=== PATIENT | female | born 1995 | race Two or more races ===

== ENCOUNTER 2016-10-02 14:28 | Emergency (ER) | payer OTHER ==
[2016-10-02] MEDS ORDERED: ORPHENADRINE 30 MG/ML 2 ML VIAL IM STA (15:45)
[2016-10-02] MEDS ORDERED: KETOROLAC 60 MG/2 ML VIAL IM STA (15:45)
--- NOTE | 2016-10-02 15:46 | ED ---
Upper Extremity HPI - General Chief Complaint: Extremity Injury, Upper Stated Complaint: Neck and shoulder pain Time Seen by Provider: 10/02/16 15:24 Source: patient, RN notes reviewed, old records reviewed Mode of arrival: ambulatory Limitations: no limitations - Related Data Previous Rx's Medication Instructions Recorded Cyclobenzaprine [Flexeril] 10 mg PO TID #15 tab 10/02/16 Ibuprofen [Motrin] 600 mg PO Q8HR PRN #20 tab 10/02/16 Allergies Allergy/AdvReac Type Severity Reaction Status Date / Time No Known Allergies Allergy Verified 10/02/16 15:55 Review of Systems ROS Statement: Those systems with pertinent positive or pertinent negative responses have been documented in the HPI. ROS Other: All systems not noted in ROS Statement are negative. Past Medical History Past Medical History: No Reported History History of Any Multi-Drug Resistant Organisms: None Reported Past Surgical History: No Surgical Hx Reported Past Psychological History: No Psychological Hx Reported Smoking Status: Never smoker Past Alcohol Use History: None Reported Past Drug Use History: None Reported General Exam Limitations: no limitations Course Vital Signs 10/02/16 14:46 Temperature 98.8 F Pulse Rate 82 Respiratory 17 Rate Blood Pressure 124/66 O2 Sat by Pulse 100 Oximetry Disposition Clinical Impression: Neck muscle spasm Disposition: HOME SELF-CARE Condition: Good Instructions: Muscle Spasm (ED) Additional Instructions: patient is to apply heat and ice to the upper back. Take pain medication instructed as prescribed. Return to the emergency department if any alarming signs or symptoms occur. Prescriptions: Cyclobenzaprine [Flexeril] 10 mg PO TID #15 tab Ibuprofen [Motrin] 600 mg PO Q8HR PRN #20 tab PRN Reason: Pain Referrals: None,Stated [Primary Care Provider] - 1-2 days Adry Tucker MD [STAFF PHYSICIAN] - 1-2 days Time of Disposition: 16:17
--- NOTE | 2016-10-02 16:16 | XR ---
EXAMINATION TYPE: XR cervical spine comp , 6 VIEWS DATE OF EXAM ORDERED: 10/02/2016 HISTORY: Pain. COMPARISON: None. FINDINGS: There is a mild reversal of the normal cervical lordosis. Alignment is normal. Atlantoaxia l relationships are normal. No fractures are seen. Intervertebral foramina are widely maintained. Pre vertebral soft tissues are normal. IMPRESSION: NO ACUTE OSSEOUS LESION.
[2016-10-02 16:23] VITALS: BP 128/79; PULSE 74; RESP 18; TEMP 97.9
== END 2016-10-02 16:30 | disposition home or self-care (01) ==
LOC: EC 14:28
DX: M62.838 Other muscle spasm (principal)
CPT/HCPCS: 99283; 96372 ×2; 72050; J2360; J1885

== ENCOUNTER 2018-06-06 20:36 | Emergency (ER) | payer OTHER ==
[2018-06-06] MEDS ORDERED: ONDANSETRON ODT 4 MG TAB PO STA (21:36)
[2018-06-06] MEDS ORDERED: IBUPROFEN 600 MG TAB PO STA (21:36)
--- NOTE | 2018-06-06 21:39 | ED ---
URI HPI - General Chief Complaint: Upper Respiratory Infection Stated Complaint: CATHERINE Time Seen by Provider: 06/06/18 21:31 Source: patient Mode of arrival: ambulatory Limitations: no limitations - History of Present Illness Initial Comments: 22-year-old female presenting with subjective fever, chills, body, aches, nausea, diarrhea, and cough. She states her symptoms began today. She did not her flu shot this year. Denies history of underlying lung disease. Denies any concern for as she is not sexually active. She denies any abdominal p ain or headache. Denies any sore throat. She denies any urinary symptoms. MD Complaint: fever, cough, sore throat Onset/Timin -: days(s) Severity: moderate - Related Data Previous Rx's Medication Instructions Recorded Cyclobenzaprine [Flexeril] 10 mg PO TID #15 tab 10/02/16 Ibuprofen [Motrin] 600 mg PO Q8HR PRN #20 tab 10/02/16 Ibuprofen [Motrin] 600 mg PO Q6HR PRN #30 tab 06/06/18 Ondansetron Odt [Zofran Odt] 4 mg PO Q8HR PRN #20 tab 06/06/18 Oseltamivir [Tamiflu] 75 mg PO Q12HR 5 Days #10 cap 06/06/18 Allergies Allergy/AdvReac Type Severity Reaction Status Date / Time latex AdvReac Swelling Verified 06/06/18 21:22 Review of Systems ROS Statement: Those systems with pertinent positive or pertinent negative responses have been documented in the HPI. Review of Systems Constitutional: Positive fever, chills Eyes: Denies change in vision, Denies pain Ears, nose, mouth, throat: Denies headaches, Denies sore throat Cardiovascular: Denies chest pain. Denies palpitations Respiratory: Denies shortness of breath, positive cough Gastrointestinal: Denies abdominal pain. Positive nausea, vomiting, diarrhea. Genitourinary: Denies hematuria, Denies infections Musculoskeletal: Denies pain, Denies swelling Integumentary: Denies rash Neurological: Denies headache, focal weakness, focal numbness Psychiatric: Denies anxiety, Denies depression Hematologic/Lymphatic: Denies easy bleeding or bruising ROS Other: All systems not noted in ROS Statement are negative. Past Medical History Past Medical History: No Reported History History of Any Multi-Drug Resistant Organisms: None Reported Past Surgical History: No Surgical Hx Reported Past Psychological History: No Psychological Hx Reported Smoking Status: Never smoker Past Alcohol Use History: None Reported Past Drug Use History: None Reported General Exam - General Exam Comments Initial Comments: General: Awake, alert, No acute Distress HENT: Normocephalic. Atraumatic. TMs normal bilaterally. No oropharyngeal edema, erythema, no tonsillar abscess seen Eyes: PERRL. EOMI. No scleral icterus. No injected conjunctiva Neck: Full ROM Chest/Lungs: Clear to auscultation bilaterally. No wheezing, rhonchi, or rales Cardiac: Sinus tachycardia No murmurs or rubs Abdomen/GI: Soft, nontender, nondistended. No rebound, guarding, or rigidity. Musculoskeletal: Full ROM Skin: Warm, dry, intact Neurologic: A/Ox3, no weakness, no sensory deficit, no abnormal gait, no coordination deficit Limitations: no limitations Course Vital Signs 06/06/18 06/06/18 21:18 23:30 Temperature 100.2 F H 100.1 F H Pulse Rate 115 H 88 Respiratory 22 16 Rate Blood Pressure 102/65 126/89 O2 Sat by Pulse 99 98 Oximetry Medical Decision Making - Medical Decision Making 22-year-old female presenting with influenza-like symptoms. Initial exam the patient is awake alert she is in no acute distress she is febrile and tachycardic but her vital signs are otherwise stable. It was noted in the triage note the patient had audible wheezing however on my examination she had no wheezing and was in no respiratory distress. The patient has no history of any serious lung disease. Patient's influenza swab is negative however her symptoms are consistent with influenza. Her chest x-ray is negative. I discussed with the patient that infection such as meningitis cannot be ruled out at this time and I offered her LP. At this time she declined and states she would like to trial outpatient symptomatic treatment and return to ER for symptoms worsen. She has no chest pain and did not feel that there is any indication for a septic or cardiac workup. She has no abdominal tenderness and she is tolerating by mouth. She denies any urinary symptoms. Discussed with the patient at this time she would like to take it. She'll be sent home with Motrin, Tamiflu, Zofran as well as a work note. No further emergent workup indicated. The patient was given return to ED instructions. They were instructed to follow up with their primary care provider. Stable for discharge at this time. - Lab Data Lab Results 06/06/18 Range/Units 22:10 Influenza Type A RNA Not Detected (Not Detectd) Influenza Type B (PCR) Not Detected (Not Detectd) Disposition Clinical Impression: Upper respiratory infection, Influenza Disposition: HOME SELF-CARE Condition: Good Instructions (If sedation given, give patient instructions): Influenza (ED), Upper Respiratory Infection (ED) Additional Instructions: Return to emergency department if you have any difficulty in breathing, are able to eat or drink anything without vomiting, developed worsening headache. Prescriptions: Ibuprofen [Motrin] 600 mg PO Q6HR PRN #30 tab PRN Reason: Fever Oseltamivir [Tamiflu] 75 mg PO Q12HR 5 Days #10 cap Ondansetron Odt [Zofran Odt] 4 mg PO Q8HR PRN #20 tab PRN Reason: nausea Is patient prescribed a controlled substance at d/c from ED?: No Referrals: Nonstaff,Physician [Primary Care Provider] - 1-2 days Lynn Mccormack MD [Medical Doctor] - 1-2 days
--- NOTE | 2018-06-06 22:36 | XR ---
EXAM: XR Chest, 2 Views CLINICAL HISTORY: ITS.REASON XR Reason: cough TECHNIQUE: Frontal and lateral views of the chest. COMPARISON: None FINDINGS: Hardware: None. Lungs/pleura: Normal. No focal consolidation. No pleural effusion or pneumothorax. Heart/mediastinum: Normal. No cardiomegaly. Soft tissues: Unremarkable. Bones: No acute fracture. Upper abdomen: Normal. IMPRESSION: No acute disease identified.
[2018-06-06] MEDS ORDERED: OSELTAMIVIR 75 MG CAP PO STA (22:47)
[2018-06-06 23:31] VITALS: BP 126/89; PULSE 88; RESP 16; TEMP 100.1
== END 2018-06-06 23:30 | disposition home or self-care (01) ==
LOC: EC 20:36
DX: J11.1 Influenza due to unidentified influenza virus with other respiratory manifestations (principal); Z91.040 Latex allergy status
CPT/HCPCS: 71046; 87502; 99284

== ENCOUNTER 2018-06-07 20:54 | Emergency (ER) | payer OTHER ==
[2018-06-07 21:22] VITALS: BP 123/77; PULSE 116; RESP 20
[2018-06-07] MEDS ORDERED: IBUPROFEN 800 MG TAB PO STA (21:39)
[2018-06-07] MEDS ORDERED: DEXAMETHASONE SOD PHOSPHATE 10 MG/ML 1 ML VIAL IM STA (21:39)
[2018-06-07] MEDS ORDERED: ACETAMINOPHEN TAB 500 MG TAB PO STA (21:39)
--- NOTE | 2018-06-07 21:46 | ED ---
Fever HPI - General Chief Complaint: Headache Stated Complaint: Revist-migraine, chest pain Time Seen by Provider: 06/07/18 21:33 Source: patient, RN notes reviewed, old records reviewed Mode of arrival: ambulatory Limitations: no limitations - History of Present Illness Initial Comments: This is a 22-year-old female the ER for evaluation. Patient resents today for evaluation of persistent fever with headache, not feeling well nausea. No vomiting no neck pain. Multiple sick contacts. Patient was seen in emergency room last night for similar symptoms including diffuse body aches and pain. Diagnosed with influenza. She last took Motrin this morning, unsure of fever to she is febrile here in the emergency room. Patient has no significant debris medical history no significant travel history. Denies vomiting or diarrhea MD Complaint: fever, other (Headache) -: days(s) Temperature Source: subjective Context: sick contacts, multiple patients with similar symptoms Associated Symptoms: chills, myalgias, headache, nausea Treatments Prior to Arrival: Acetaminophen, Ibuprofen - Related Data Previous Rx's Medication Instructions Recorded Cyclobenzaprine [Flexeril] 10 mg PO TID #15 tab 10/02/16 Ibuprofen [Motrin] 600 mg PO Q8HR PRN #20 tab 10/02/16 Ibuprofen [Motrin] 600 mg PO Q6HR PRN #30 tab 06/06/18 Ondansetron Odt [Zofran Odt] 4 mg PO Q8HR PRN #20 tab 06/06/18 Oseltamivir [Tamiflu] 75 mg PO Q12HR 5 Days #10 cap 06/06/18 Allergies Allergy/AdvReac Type Severity Reaction Status Date / Time latex AdvReac Swelling Verified 06/07/18 21:21 Review of Systems ROS Statement: Those systems with pertinent positive or pertinent negative responses have been documented in the HPI. ROS Other: All systems not noted in ROS Statement are negative. Past Medical History Past Medical History: No Reported History History of Any Multi-Drug Resistant Organisms: None Reported Past Surgical History: No Surgical Hx Reported Past Psychological History: No Psychological Hx Reported Smoking Status: Never smoker Past Alcohol Use History: None Reported Past Drug Use History: None Reported General Exam - General Exam Comments Initial Comments: No meningismus Limitations: no limitations General appearance: alert, in no apparent distress Head exam: Present: atraumatic, normocephalic, normal inspection Eye exam: Present: normal appearance, PERRL, EOMI. Absent: scleral icterus, conjunctival injection, periorbital swelling ENT exam: Present: normal exam, mucous membranes moist Neck exam: Present: normal inspection. Absent: tenderness, meningismus, lymphadenopathy Respiratory exam: Present: normal lung sounds bilaterally. Absent: respiratory distress, wheezes, rales, rhonchi, stridor Cardiovascular Exam: Present: normal rhythm, tachycardia, normal heart sounds. Absent: systolic murmur, diastolic murmur, rubs, gallop, clicks GI/Abdominal exam: Present: soft, normal bowel sounds. Absent: distended, tenderness, guarding, rebound, rigid Extremities exam: Present: normal inspection, full ROM, normal capillary refill. Absent: tenderness, pedal edema, joint swelling, calf tenderness Back exam: Present: normal inspection Neurological exam: Present: alert, oriented X3, CN II-XII intact Psychiatric exam: Present: normal affect, normal mood Skin exam: Present: warm, dry, intact, normal color. Absent: rash Course Vital Signs 06/07/18 21:19 Temperature 102.3 F H Pulse Rate 116 H Respiratory 20 Rate Blood Pressure 123/77 O2 Sat by Pulse 96 Oximetry - Reevaluation(s) Reevaluation #1: 06/07/18 22:21 Medical record prior ER visits reviewed Reevaluation #2: 06/07/18 22:21 Patient symptoms are dramatically improved from initial onset. Encouraged to be consistent with Motrin Tylenol Medical Decision Making - Medical Decision Making 22 female the ER for evaluation of fever and influenza type symptoms. Patient will be treated appropriately, encouraged increased Motrin Tylenol use. Patient can be discharged home Disposition Clinical Impression: Headache, Influenza, Fever Disposition: HOME SELF-CARE Condition: Good Instructions (If sedation given, give patient instructions): Fever in Adults (ED), Acute Headache (ED) Is patient prescribed a controlled substance at d/c from ED?: No Referrals: None,Stated [Primary Care Provider] - 1-2 days
[2018-06-07] MEDS ORDERED: PROCHLORPERAZINE 10 MG TAB PO STA (21:59)
[2018-06-07] MEDS ORDERED: diphenhydrAMINE ELIXIR 25 MG/10 ML CUP PO STA (21:59)
[2018-06-07 23:16] VITALS: TEMP 101.9
== END 2018-06-07 22:34 | disposition home or self-care (01) ==
LOC: EC 20:54
DX: J11.1 Influenza due to unidentified influenza virus with other respiratory manifestations (principal); Z91.040 Latex allergy status
CPT/HCPCS: 99283; 96372; S0183; J1100